=== PATIENT | female | born 1985 | race Caucasian/White ===

== ENCOUNTER 2016-04-26 11:01 | Day surgery (SDC) | payer MEDICAID ==
[~2016-04-26] VITALS: Ht 167.6 cm; Wt 146.5 kg
[~2016-04-26 11:01] MED LIST: ADIPEX-P37.5 MG PO
[2016-04-26] MEDS ORDERED: PROTONIX40 MG PO (11:39)
[2016-04-26] MEDS ORDERED: NORVASC5 MG PO (11:39)
[2016-04-26] MEDS ORDERED: EFFEXOR75 MG PO (11:40)
[2016-04-26] MEDS ORDERED: AMBIEN10 MG PO (11:40)
[2016-04-26] MEDS ORDERED: MIRALAX527 GM PO (11:41)
[2016-04-26] MEDS ORDERED: HYDROCODONE-APA1 TAB PO ×2 (11:41→15:42)
[2016-04-26 11:56] VITALS: BP 109/60; Ht 167.6 cm; Wt 146.5 kg
[2016-04-26 12:13] LABS: BASOPHILS 0.5 % (0.0-2.0); EOSINOPHILS 1.2 % (0-7); HEMATOCRIT 39.8 % (36.0-48.0); HEMOGLOBIN 13.3 g/dL (12-16); IMMATURE GRANULOCYTES 0.1 % (0-5); LYMPHOCYTES 30.4 % (15-50); MCH 28.9 pg (26.0-34.0); MCHC 33.4 g/dL (31.0-37.0); MCV 86.3 fL (80.0-100.0); MONOCYTES 6.6 % (2-11); NEUTROPHILS 61.2 % (40-80); PLATELET COUNT 192 10x3/uL (130-400); RBC 4.61 10x6/uL (4.00-5.40); RDW 13.2 % (11.5-14.5); WBC 7.4 10x3/uL (4.8-10.8)
[2016-04-26 12:29] LABS: CALC OSMOLALITY 279 mosm/kg (275-300); CALCIUM 8.7 mg/dL (8.5-10.1); CARBON DIOXIDE 25.2 mmol/L (21.0-32.0); CHLORIDE - SERUM 105 mmol/L (98-107); CREATININE - SERUM 0.8 mg/dL (0.6-1.3); GLUCOSE 101 mg/dL (74-106); POTASSIUM - SERUM 3.7 mmol/L (3.5-5.1); SODIUM 141 mmol/L (136-145); UREA NITROGEN 9 mg/dL (7-18); eGFR NON AFRICAN AMERICAN 90 mL/min (90-120)
[2016-04-26 12:33] LABS: HCG SERUM NEGATIVE (NEGATIVE)
--- NOTE | 2016-04-26 15:26 | NUR ---
TELLO GLASER AT 1703
--- NOTE | 2016-04-26 15:57 | NUR ---
PRE OP BP 150/93
--- NOTE | 2016-04-26 17:30 | NUR ---
PATIENT STATES PAIN LEVEL DECREASED TO 3. DISCHARGE INSTRUCTIONS REVIEWED WITH PATIENT. DISCHARGED HOME VIA WHEELCHAIR WITH PARENTS
--- NOTE | 2016-05-06 13:21 | OP ---
PATIENT NAME: VAIBHAV SRIVASTAVA MEDICAL RECORD: [id number] :89 LOCATION:D.OPS ADMISSION DATE: SURGEON: EMMANUEL ZAMORA MD DATE OF OPERATION: 04/26/2016 PREOPERATIVE DIAGNOSES: 1. Biliary dyskinesia. 2. Morbid obesity. 3. Hypertension. POSTOPERATIVE DIAGNOSES: 1. Biliary dyskinesia. 2. Morbid obesity. 3. Hypertension. PROCEDURE: Laparoscopic cholecystectomy. SURGEON: Emmanuel Zamora MD REPORT OF PROCEDURE: The patient's abdomen was prepped and draped in sterile fashion. A cutdown was made on the superior aspect of the umbilicus, 0 Vicryls were placed in the fascia bilaterally and the fascia was incised with a 15 blade. I then bluntly entered the peritoneal cavity and placed a 12-mm Madelin port. Under direct visualization, a 5 mm trocar was placed in the epigastrium and 2 more 5-mm trocars were placed in the right subcostal region. The gallbladder was grasped and elevated and there was no sign of inflammatory changes, but it was distended. The cystic artery and cystic duct were dissected free and these were clipped proximally and distally and ligated in standard fashion. The gallbladder was then taken off the liver bed using electrocautery and placed into an EndoCatch bag. Any bleeding from the liver bed was then treated with electrocautery. We irrigated out the right upper quadrant and assured there was no sign of any bleeding or bile leakage. At this point, the ports and insufflation were then removed and the gallbladder was taken out through the umbilicus. The umbilical fascia was closed with interrupted 0 Vicryls times 3. The wounds were irrigated out with normal saline and infused with 10 mL of 0.25% Marcaine with epinephrine. The skin incisions were all closed with subcutaneous 5-0 Monocryl and dressed appropriately. COMPLICATIONS: None. CONDITION: Stable. ANESTHESIA: General endotracheal and local. BLOOD LOSS: Minimal. TRANSINT:[id number] Voice Confirmation ID: [id number] DOCUMENT ID: [id number] OPERATIVE REPORT [id number] VAIBHAV SRIVASTAVA EMMANUEL ZAMORA MD at 1321 CC: CARLO GLORIA MD [id number] DICTATION DATE: 04/26/16 1547 [facility]: 04/26/16 1839 [facility] 04/26/16 [facility] [address] [place] [address]
== END 2016-04-26 17:30 | disposition home or self-care (01) ==
LOC: D.OPS 11:01 → D.PAN 13:25 → D.OPS 13:45 → D.PAN 13:45 → D.OPS 17:30
PROVIDERS: Anesthesiology; Surgery
DX: K81.1 Chronic cholecystitis (principal); E66.01 Morbid (severe) obesity due to excess calories; Z68.43 Body mass index [BMI] 50.0-59.9, adult; I10 Essential (primary) hypertension